=== PATIENT | male | born 1990 | race Asian ===

== ENCOUNTER 2017-09-07 09:42 | Emergency (ER) | END 2017-09-07 12:33 | disposition left against medical advice (07) ==

== ENCOUNTER 2018-02-27 13:00 | Day surgery (SDC) | END 2018-02-27 16:52 | disposition home or self-care (01) ==

== ENCOUNTER 2018-11-11 22:20 | Emergency (ER) | payer BC ==
[~2018-11-11] VITALS: Ht 177.8 cm; Wt 85.5 kg
[~2018-11-11 22:20] MED LIST: CALCIUM; FISH OIL; MVI; PREVACID; RANITIDINE; TUMS
[2018-11-11 22:35] VITALS: Ht 177.8 cm; Wt 85.5 kg
[2018-11-12] MEDS ORDERED: IBUP800T48 PO (00:53)
[2018-11-12] MEDS ORDERED: HYDR-4011 PO (00:53)
--- NOTE | 2018-11-12 01:00 | ERD ---
ER Documentation Chief Complaint Chief Complaint Pt was bouldering and fell injurying r foot, no deformity HPI 28-year-old male who has right foot pain. He was bowling today and he fell di rectly onto his foot. No head injury or KO. No other areas of his body hurt. He is unable to bear weight secondary to the pain. No numbness or tingling. ROS All systems reviewed and are negative except as per history of present illness. Medications Home Meds Active Scripts Hydrocodone/Acetaminophen ([place] 5-325 Tablet) 1 Each Tablet, 1 TAB PO Q6H PRN for PAIN, #15 TAB Prov:KINSEY JOHNSON PA-C 11/12/18 Ibuprofen* (Motrin*) 800 Mg Tab, 800 MG PO Q6, #30 TAB Prov:KINSEY JOHNSON PA-C 11/12/18 Reported Medications [Ranitidine] No Conflict Check 02/27/18 [Tums] No Conflict Check 02/27/18 [Fish Oil] No Conflict Check 02/27/18 [Calcium] No Conflict Check 02/27/18 [Mvi] No Conflict Check 02/27/18 [Prevacid] No Conflict Check 02/27/18 Allergies Allergies: Coded Allergies: No Known Allergy (Unverified , 09/07/17) PMhx/Soc Medical and Surgical Hx: pt denies Medical Hx, pt denies Surgical Hx History of Surgery: No Anesthesia Reaction: No Hx Neurological Disorder: No Hx Respiratory Disorders: No Hx Cardiac Disorders: No Hx Psychiatric Problems: No Hx Miscellaneous Medical Probl: No Hx Alcohol Use: No Hx Substance Use: No Hx Tobacco Use: No Smoking Status: Never smoker FmHx Family History: No diabetes Physical Exam Vitals Vital Signs Date Temp Pulse Resp B/P (MAP) Pulse Ox O2 O2 Flow FiO2 Time Delivery Rate 11/11/18 99.8 62 16 136/86 99 22:35 (103) Physical Exam Const: No acute distress Head: Atraumatic Eyes: Normal Conjunctiva ENT: Normal External Ears, Nose and Mouth. Neck: Full range of motion. No meningismus. Resp: Clear to auscultation bilaterally Cardio: Regular rate and rhythm, no murmurs Lower Extremity -right Skin: No laceration Compartments: Soft Motor: Full active range of motion hip/knee/ankle/foot Sensation: Intact to light touch FDWS/MF/LF/P surfaces. Bones: Base of third and fourth metatarsals tender no bony abnormalities Joints: No effusion or laxity Pulses/Perfusion: 2+ DP, Capillary refill < 2 seconds Procedures/MDM Patient has foot pain after trauma. He declined pain medication. He is neurovascularly intact. X-rays show nondisplaced fracture of the third and fourth metatarsals. He was placed in a short leg posterior splint and given crutches prescription for pain medication copy of x-rays and outpatient or thopedic follow-up. Patient counseled regarding my diagnostic impression and care plan. Prior to discharge all questions answered. Pt agrees with treatment plan and understands strict return precautions. Pt is instructed to follow up with primary care provider within 24-48 hours. Precautionary instructions provided including instructions to return to the ER if not improving or for any worsening or changing symptoms or concerns. Departure Diagnosis: Primary Impression: Metatarsal fracture Condition: Stable Patient Instructions: Fracture, Foot Referrals: [facility] [place] YOU HAVE RECEIVED A MEDICAL SCREENING EXAM AND THE RESULTS INDICATE THAT YOU DO NOT HAVE A CONDITION THAT REQUIRES URGENT TREATMENT IN THE EMERGENCY DEPARTMENT. FURTHER EVALUATION AND TREATMENT OF YOUR CONDITION CAN WAIT UNTIL YOU ARE SEEN IN YOUR DOCTORS OFFICE WITHIN THE NEXT 1-2 DAYS. IT IS YOUR RESPONSIBILITY TO MA KE AN APPOINTMENT FOR FOLOW-UP CARE. IF YOU HAVE A PRIMARY DOCTOR --you should call your primary doctor and schedule and appointment IF YOU DO NOT HAVE A PRIMARY DOCTOR YOU CAN CALL OUR PHYSICIAN REFERRAL HOTLINE AT . IF YOU CAN NOT AFFORD TO SEE A PHYSICIAN YOU CAN CHOSE FROM THE FOLLOWING [facility] INSTITUTIONS: [facility] [address] [place] [address] [facility] [address] [place] [address] [facility] [address] [place] [address] Additional Instructions: SPECIALIST: YOU HAVE A MEDICAL CONDITION WHICH REQUIRES YOU TO SEE A SPECIALIST WITHIN THE NEXT 1-2 DAYS. PLEASE FOLLOW UP WITH YOUR PRIMARY PHYSICIAN FOR REFFERAL.IF YOU DO NOT HAVE A PRIMARY CARE PHYSICIAN AND/OR YOU CAN NOT AFFORD TO SEE A PHYSICIAN THE FOLLOWING RESOURCES HAVE BEEN SUPPLIED TO YOU. IT IS YOUR RESPONSIBILITY TO BE SEEN BY THE SPECIALIST KINSEY JOHNSON PA-C Nov 12, 2018 01:00
[2018-11-12 01:42] VITALS: BP 132/85; PULSE 65; RESP 18
== END 2018-11-12 01:43 | disposition home or self-care (01) ==
LOC: FTE 22:20
DX: S92.334A Nondisplaced fracture of third metatarsal bone, right foot, initial encounter for closed fracture (principal); S92.344A Nondisplaced fracture of fourth metatarsal bone, right foot, initial encounter for closed fracture; W18.39XA Other fall on same level, initial encounter; Y92.9 Unspecified place or not applicable
CPT/HCPCS: 73630